=== PATIENT | female | born 1975 | race Caucasian/White ===

== ENCOUNTER 2023-11-26 14:00 | Outpatient (AMB) | payer OTHER, SELFPAY ==
--- NOTE | 2023-11-26 14:07 | MHC.OFFVIS ---
Intake Vital Signs 11/26/23 14:12 Height 5 ft 5 in Weight 178 lb BMI 29.6 BP 138/86 Intake Visit Reasons: New patient pelvic cramping Intake Note: c/o of pelvic pressure. ? fibroids Cylinder Machine Operator Required: No Information Interpreted: non-clinical & clinical Heading And Priming Tool Setter: Heading And Priming Tool Setter Present (Ayana FOY) Accompanied by: Self / Same As Patient Allergies sulfamethoxazole [From Bactrim] Allergy (Severe, Verified 11/26/23 14:14) Rash trimethoprim [From Bactrim] Allergy (Severe, Verified 11/26/23 14:14) Rash Is last menstrual period known: Yes Last menstrual period: 11/19/23 HPI HPI Comments History of Present Illness Details Presenting referred from PCP regarding heavy irregular menstrual cycles associated with pelvic cramping and passage of blood clots. The patient had a CT scan and pelvic ultrasound results not available which showed according the patient myomas. No previous screening mammogram PFSH Surgical History Hx of cholecystectomy Family History Father Heart disease Social History Household Members: Spouse Household Members Other:: stepson Housing: House Alcohol intake: never Patient Tobacco Use Status: Current everyday Tobacco user Cigarettes Per Day: 20 Years Smoked: 20 Current occupational status: employed Current occupation: Therapist Sexually active: Yes Sexual orientation: Straight/Heterosexual Gender identity: Female Female Reproductive History Menstrual Date of last menstrual period: 11/19/23 Review of Systems Const All systems reviewed & are unremarkable except as noted in HPI and below Card Reports as per HPI Resp Reports as per HPI GI Reports as per HPI and Reports no additional complaints Reports as per HPI Physical Exam Vital Signs: Last Vital Signs BP 138/86 11/26/23 14:12 BMI result Body Mass Index 29.6 Const General: cooperative, healthy appearing and comfortable Chest Chest palpation & inspection: normal inspection of the chest and normal palpation of entire chest wall Breast/axilla inspection: normal inspection of the breasts and normal inspection of the axillae Breast/axilla palpation: normal palpation of the breasts, normal palpation of the axillae and no axillary lymphadenopathy Resp Effort & Inspection: normal respiratory effort Auscultation: clear to auscultation bilaterally Percussion: percussion normal Cardio Palpation: normal PMI Rate: regular rate Rhythm: regular rhythm Heart sounds: no murmurs and no rubs Peripheral pulses: Peripheral pulses 2+ throughout GI Inspection: Yes normal to inspection Palpation (GI): Soft to palpation, nontender, no guarding, not rigid and No hepatosplenomegaly present Percussion: Yes normal to percussion Auscultation: normal bowel sounds Rectal Exam - Female: deferred General: Yes bladder normal to palpation External Female Exam: No lesion Speculum Exam - Vagina: normal appearance of the vagina, normal palpation, normal vaginal discharge and not erythematous Speculum Exam - Cervix: normal appearance of the cervix and normal palpation Bimanual exam- vagina & uterus: normal bimanual exam, normal palpation, uterine size normal, bladder normal to palpation, consistency normal and normal palpation Bimanual Exam- Adnexa, other: normal adnexae, no masses and no tenderness Results AMB Urinalysis Dipstick UR Leukocytes Negative Last Edit by Ayana Ogden CMA on 11/26/23 14:25 UR Nitrite Negative Last Edit by Ayana Ogden, GASOLINE LOCOMOTIVE CRANE OPERATOR on 11/26/23 14:25 UR Urobilinogen Normal Last Edit by Ayana Ogden, GASOLINE LOCOMOTIVE CRANE OPERATOR on 11/26/23 14:25 UR Protein Negative Last Edit by Ayana Ogden, GASOLINE LOCOMOTIVE CRANE OPERATOR on 11/26/23 14:25 UR Ph 5.5 Last Edit by Ayana Ogden, GASOLINE LOCOMOTIVE CRANE OPERATOR on 11/26/23 14:25 UR Blood Negative Last Edit by Ayana Ogden, GASOLINE LOCOMOTIVE CRANE OPERATOR on 11/26/23 14:25 UR Specific [place] 1.020 Last Edit by Ayana Ogden, GASOLINE LOCOMOTIVE CRANE OPERATOR on 11/26/23 14:25 UR Ketone Negative Last Edit by Ayana Ogden, GASOLINE LOCOMOTIVE CRANE OPERATOR on 11/26/23 14:25 UR Bilirubin Negative Last Edit by Ayana Ogden, GASOLINE LOCOMOTIVE CRANE OPERATOR on 11/26/23 14:25 UR Glucose Negative Last Edit by Ayana Odgen, GASOLINE LOCOMOTIVE CRANE OPERATOR on 11/26/23 14:25 Assessment & Plan Assessment & Plan (1) Abnormal uterine bleeding (AUB): Code(s): N93.9 - Abnormal uterine and vaginal bleeding, unspecified Plan: Co testing done, screening mammogram, GC and chlamydia taken CBC, prolactin, FSH/LH, TSH, HCG ordered and we request the results of the CT scan and pelvic ultrasound. Discussed with the patient the different causes of abnormal bleeding including thyroid disorders, uterine and ovarian pathology, endometrial hyperplasia, carcinoma and other potential causes. Discussed with the patient the work up including CBC (to r/o anemia), TSH, prolactin, FSH/LH, hCG pelvic Ultrasound, endometrial biopsy to r/o endometrial pathology. All questions answered and the patient verbalized understanding. Instructed the patient to schedule an appointment for an endometrial biopsy in 2 weeks. Orders: Orders AMB Urinalysis Dipstick Today R10.2 - Pelvic and perineal pain Prolactin Today N93.9 - Abnormal uterine and vaginal bleeding, unspecified TSH reflex Free T4 Today N93.9 - Abnormal uterine and vaginal bleeding, unspecified HCG Quantitative Today N93.9 - Abnormal uterine and vaginal bleeding, unspecified Follicle Stimulating Hormone Today N93.9 - Abnormal uterine and vaginal bleeding, unspecified Lutenizing Hormone Today N93.9 - Abnormal uterine and vaginal bleeding, unspecified MM screening mammo BI Today Z12.31 - Encounter for screening mammogram for malignant neoplasm of breast Complete Blood Count no Diff Today N93.9 - Abnormal uterine and vaginal bleeding, unspecified Coding Level of Care Code New Pt Level 3 (80224) Diagnoses Abnormal uterine bleeding (AUB) N93.9
[2023-11-26 14:12] VITALS: BP 138/86; BMI 29.6
== END 2023-11-26 14:43 | disposition home or self-care (01) ==
PROVIDERS: PCP Internal Medicine; Visit Provider Obstetrics & Gynecology
DX: R10.2 Pelvic and perineal pain (principal); N93.9 Abnormal uterine and vaginal bleeding, unspecified
CPT/HCPCS: 99203

== ENCOUNTER 2023-11-26 14:00 | Outpatient (REF) | payer OTHER, SELFPAY ==
[2023-11-26 15:34] LABS: Hematocrit 41.5 % (37.0-47.0); Hemoglobin 13.9 g/dl (12.0-16.0); Mean Corpuscular HGB Conc 33.5 g/dl (31.0-35.0); Mean Corpuscular Hemoglobin 28.5 pg (27.0-33.0); Mean Corpuscular Volume 85.2 fL (80.0-98.0); Mean Platelet Volume 9.5 fL (9.4-12.3); Platelet Count 407 X10*3/uL (160-400); Red Blood Count 4.87 X10*6/uL (4.20-5.50); Red Cell Distribution Width 14.2 % (11.0-16.0); White Blood Count 10.3 X10*3/uL (4.8-10.8)
[2023-11-26 16:41] LABS: HCG Quantitative < 2 mIU/mL; TSH reflex Free T4 1.48 uIU/mL (0.32-4.0)
[2023-11-27 02:14] LABS: CT PCR NOT DETECTED (Not Detect.); NG PCR NOT DETECTED (Not Detect.)
[2023-11-28 01:48] LABS: Follicle Stimulating Hormone 20.7 mIU/mL; Lutenizing Hormone 3.6 mIU/mL; Prolactin 6.4 ng/mL
[2023-11-29 09:29] LABS: HPV mRNA E6/E7 rflx Not Detected (Not Detected)
== END 2023-11-26 14:01 | disposition home or self-care (01) ==
LOC: HO.LAB 14:00
PROVIDERS: PCP Internal Medicine; Visit Provider Obstetrics & Gynecology
DX: Z12.4 Encounter for screening for malignant neoplasm of cervix (principal); Z11.51 Encounter for screening for human papillomavirus (HPV); N93.9 Abnormal uterine and vaginal bleeding, unspecified; Z20.2 Contact with and (suspected) exposure to infections with a predominantly sexual mode of transmission
CPT/HCPCS: 0353U; 36415; 81002; 83001; 83002; 84146; 84443; 84702; 85027; 87624; 88142

== ENCOUNTER 2023-12-22 07:59 | Outpatient (REF) | payer OTHER, SELFPAY | END 2023-12-22 08:00 | disposition home or self-care (01) | LOC: HO.LNP 07:59 | PROVIDERS: PCP Internal Medicine; Visit Provider Obstetrics & Gynecology | DX: N93.9 Abnormal uterine and vaginal bleeding, unspecified (principal) | CPT/HCPCS: 58100; 81025; 88305 ==

== ENCOUNTER 2023-12-22 07:59 | Outpatient (AMB) | payer OTHER, SELFPAY ==
--- NOTE | 2023-12-22 08:02 | MHC.OFFVIS ---
Intake Vital Signs 12/22/23 08:06 Height 5 ft 5 in Weight 176 lb 5.917 oz BMI 29.3 BP 148/82 H Intake Visit Reasons: U/S-CT follow up/from [facility] Allergies sulfamethoxazole [From Bactrim] Allergy (Severe, Verified 11/26/23 14:14) Rash trimethoprim [From Bactrim] Allergy (Severe, Verified 11/26/23 14:14) Rash HPI HPI Comments History of Present Illness Details Presenting for EMB PFSH Surgical History Hx of cholecystectomy Family History Father Heart disease Social History Household Members: Spouse Household Members Other:: stepson Housing: House Alcohol intake: never Patient Tobacco Use Status: Current everyday Tobacco user Cigarettes Per Day: 20 Years Smoked: 20 Current occupational status: employed Current occupation: Therapist Sexual orientation: Straight/Heterosexual Gender identity: Female Review of Systems Const All systems reviewed & are unremarkable except as noted in HPI and below Reports as per HPI and Reports no additional complaints GI Reports no additional complaints Reports no additional complaints Physical Exam Vital Signs: Last Vital Signs BP 148/82 H 12/22/23 08:06 BMI result Body Mass Index 29.3 Office Procedures Endometrial Biopsy Details: The patient was counseled regarding the indication and benefits of endometrial sampling to rule out endometrial pathology including not limited to endometrial hyperplasia or endometrial cancer and others; The alternatives (Either do nothing vs. hysteroscopy D&C) & the risks were discussed with the patient including but not limited: pain, uterine perforation, bleeding, infection, possible injury to bladder, bowel, ureter, possible need for blood transfusion with all its possible risks. The patient verbalized understanding all questions answered and signed consent. UPT was done and was negative The patient was placed into the dorsal lithotomy position; a speculum was inserted in the vagina. Using aseptic technique for the procedure, the cervix was cleansed with Betadine. The anterior lip of the cervix was grasped with a single tooth tenaculum. The uterus was sounded to 7 cm with a 4 mm Pipelle was used. Tissues samples were obtained and placed in formalin, in a patient labeled container and sent to the pathology department. At the end of the procedure, there was minimal bleeding noted The patient tolerated the procedure well and was discharged in good condition with the following instructions: Nothing in the vagina until the bleeding stops. No sex until the bleeding stops, to call if any of the following occurs: fever (>100.4), flu-like symptoms, abdominal pain, heavy bleeding, four smelling vaginal discharge. The patient was instructed to schedule a Follow up appointment in 2 weeks to discuss pathology results of the biopsy and treatment options. This note was generated with a voice recognition program. Some errors may have been overlooked during the review of this note. Sometimes these errors may affect the content or meaning of a given sentence. 95089-[id number] Biopsy Results AMB Test Urine AMB Test Urine Negative Last Edit by LAW Porter on 12/22/23 08:21 Results Reviewed Results Reviewed: Laboratory Last Values Tst Clinic Negative 12/22/23 08:20 Assessment & Plan Assessment & Plan (1) Abnormal uterine bleeding (AUB): Comment: Multiple large myomas Code(s): N93.9 - Abnormal uterine and vaginal bleeding, unspecified Plan: EMB done, see procedure note Orders: Orders Surgical Today N93.9 - Abnormal uterine and vaginal bleeding, unspecified AMB Endometrial Biopsy Today N93.9 - Abnormal uterine and vaginal bleeding, unspecified AMB HCG Urine Test Today N93.9 - Abnormal uterine and vaginal bleeding, unspecified Coding Level of Care Code Procedure Only Diagnoses Abnormal uterine bleeding (AUB) N93.9 CPT Codes Endometrial Biopsy - CPT: 76648-Eksjitzdgxf Biopsy ([id number])
[2023-12-22 08:06] VITALS: BP 148/82; BMI 29.3
== END 2023-12-22 08:41 | disposition home or self-care (01) ==
PROVIDERS: PCP Internal Medicine; Visit Provider Obstetrics & Gynecology
DX: N93.9 Abnormal uterine and vaginal bleeding, unspecified (principal)
CPT/HCPCS: 58100

== ENCOUNTER 2023-12-24 12:55 | Outpatient (AMB) | payer OTHER, SELFPAY ==
[2023-12-24 12:59] VITALS: BP 142/80; BMI 29.3
--- NOTE | 2023-12-24 12:59 | MHC.OFFVIS ---
Intake Vital Signs 12/24/23 12:59 Height 5 ft 5 in Weight 176 lb 5.917 oz BMI 29.3 BP 142/80 H Intake Visit Reasons: EMB Follow up Facing Machine Operator: Facing Machine Operator Present Allergies sulfamethoxazole [From Bactrim] Allergy (Severe, Verified 11/26/23 14:14) Rash trimethoprim [From Bactrim] Allergy (Severe, Verified 11/26/23 14:14) Rash Is last menstrual period known: Yes Last menstrual period: 09/14/20 Post menopausal: No Patient : No Do you need a note to return to daycare/school/sports/work: Yes (for surgery on friday) HPI HPI Comments History of Present Illness Details The patient is presenting for follow-up to discuss the results of her abnormal uterine bleeding workup and options of treatment. The following workup was done.: H&H= 13.9/41.5 TSH, prolactin, hCG, GC and chlamydia were negative. Endometrial biopsy pathology showed the following: Endometrium, biopsy: Predominantly mucus and blood with endocervical glandular mucosa, scant inactive endometrium with fragment of benign endometrial polyp, and benign endocervical polyp; no atypia or carcinoma Co testing was done was negative. Pelvic ultrasound showed the following: Fundal myoma measuring 5.5 cm, mid body submucosal myoma 3.9 cm lower uterine segment myoma measuring 5.6 cm PFSH Medical History HTN (hypertension) Surgical History Hx of cholecystectomy Family History Father Heart disease Social History Household Members: Spouse Household Members Other:: stepson Housing: House Alcohol intake: never Patient Tobacco Use Status: Current everyday Tobacco user Cigarettes Per Day: 20 Years Smoked: 20 Current occupational status: employed Current occupation: Therapist Sexual orientation: Straight/Heterosexual Gender identity: Female Female Reproductive History Menstrual Date of last menstrual period: 09/14/20 Total pregnancies: 2 Full term: 2 Review of Systems Const All systems reviewed & are unremarkable except as noted in HPI and below Reports as per HPI and Reports no additional complaints Card Reports as per HPI and Reports no additional complaints Resp Reports as per HPI and Reports no additional complaints GI Reports as per HPI and Reports no additional complaints Reports as per HPI Physical Exam Vital Signs: Last Vital Signs BP 142/80 H 12/24/23 12:59 BMI result Body Mass Index 29.3 Const General: cooperative, healthy appearing and comfortable Resp Effort & Inspection: normal respiratory effort Auscultation: clear to auscultation bilaterally Percussion: percussion normal Cardio Palpation: normal PMI Rate: regular rate Rhythm: regular rhythm Heart sounds: no murmurs and no rubs Peripheral pulses: Peripheral pulses 2+ throughout GI Inspection: Yes normal to inspection Palpation (GI): Soft to palpation, nontender, no guarding, not rigid and No hepatosplenomegaly present Percussion: Yes normal to percussion Auscultation: normal bowel sounds Rectal Exam - Female: deferred Assessment & Plan Assessment & Plan (1) Abnormal uterine bleeding (AUB): Comment: Multiple large myomas Fragments of endometrial polyp on EMB pathology Code(s): N93.9 - Abnormal uterine and vaginal bleeding, unspecified Plan: Discussed with the patient the results of the workup and options of treatment. All pros and cons, risks and benefits of all options were discussed with the patient. The patient decided to proceed with surgical management. Discussed with the patient the different types of hysterectomies including minimally invasive option. All pros, cons, r/b of each approach were discussed the patient including evidence that morbidity is less and recovery is shorter with minimally invasive approaches to hysterectomy. Discussed with the patient the lack of availability of the robot DaVinci robot and/or minimally invasive core composer feeder specialist at [facility]. Will refer to [facility] for minimally invasive hysterectomy. All questions answered the patient verbalized understanding Coding Level of Care Code Est Pt Level 3 (68456) Diagnoses Abnormal uterine bleeding (AUB) N93.9
== END 2023-12-24 15:12 | disposition home or self-care (01) ==
LOC: HO.HWS 12:55
PROVIDERS: PCP Internal Medicine; Visit Provider Obstetrics & Gynecology
DX: N93.9 Abnormal uterine and vaginal bleeding, unspecified (principal)
CPT/HCPCS: 99213

== ENCOUNTER → 2023-12-24 12:55 | Outpatient (BNVA) | payer OTHER, SELFPAY | PROVIDERS: PCP Internal Medicine; Visit Provider Obstetrics & Gynecology ==

== ENCOUNTER 2024-02-23 09:46 | Day surgery (SDC) | payer OTHER, SELFPAY ==
[2024-02-18 08:11] VITALS: BMI 31.6
--- NOTE | 2024-02-19 13:56 | HO.ANESPROP2 ---
Documented by User: Bruna Aldana NP 02/19/24 13:57 HPI - Anesthesia Eval Consult details Narrative: 49yo F for Right Cataract Extraction IOL Insertion Optimized per PCP No previous cataract on record PMFSH Active Problems Active Problems: All Active Problems Abnormal uterine bleeding (AUB) (Acute) Past Medical History Medical History Narcolepsy Pre-diabetes Chronic pain disorder Depression with anxiety Back pain GERD (gastroesophageal reflux disease) HTN (hypertension) Family History Family History Father Heart disease Surgical History Surgical History Hx of cholecystectomy Social History Social History Household Members: Spouse Household Members Other:: stepson Housing: House Alcohol intake: never Patient Tobacco Use Status: Current everyday Tobacco user Cigarettes Per Day: 20 Years Smoked: 20 Advance Directives: No Advance Directives Information Provided: Yes Current occupational status: employed Current occupation: Therapist Sexual orientation: Straight/Heterosexual Gender identity: Female Meds Allergies Allergy/AdvReac Type Severity Reaction Status Date / Time sulfamethoxazole Allergy Severe Rash Verified 11/26/23 14:14 [From Bactrim] trimethoprim [From Bactrim] Allergy Severe Rash Verified 11/26/23 14:14 prednisone Allergy Intermediate Rash Verified 02/18/24 08:11 Home Medications ?Medication ?Instructions ?Recorded ?Confirmed ?Last Taken ?Type amlodipine 10 mg tablet 10 mg PO DAILY 11/26/23 02/18/24 Unknown History carisoprodol 350 mg tablet 350 mg PO TID PRN Muscle Spasm 11/26/23 02/18/24 Unknown History escitalopram oxalate 10 mg tablet 10 mg PO DAILY 11/26/23 02/18/24 Unknown History fluticasone propionate 50 1 spray intranasal BID 02/18/24 02/18/24 Unknown History mcg/actuation nasal spray,suspension hydrocodone 5 mg-acetaminophen 325 1 tab PO Q8H PRN moderate pain 02/18/24 02/18/24 Unknown History mg tablet lisdexamfetamine 30 mg capsule 30 mg PO QAM 02/18/24 02/18/24 Unknown History (Vyvanse) meloxicam 15 mg tablet 15 mg PO QAM 02/18/24 02/18/24 Unknown History Exam Height,Weight and Vital Signs: Height 5 ft 5 in Weight 86.2 kg Assessment and Plan Assessment Anesthesia Assessment: Chart Reviewed Documented by User: Kaykay Granados MD 02/23/24 09:51 PMFSH Past Medical History Medical History Narcolepsy Pre-diabetes Chronic pain disorder Depression with anxiety Back pain GERD (gastroesophageal reflux disease) HTN (hypertension) Family History Family History Father Heart disease Family history of problems with anesthesia: No Surgical History Surgical History Hx of cholecystectomy History of Problems with Anesthesia: No Social History Social History Household Members: Spouse Household Members Other:: stepson Housing: House Alcohol intake: never Patient Tobacco Use Status: Current everyday Tobacco user Cigarettes Per Day: 20 Years Smoked: 20 Advance Directives: No Advance Directives Information Provided: Yes Current occupational status: employed Current occupation: Therapist Sexual orientation: Straight/Heterosexual Gender identity: Female Meds Allergies Allergy/AdvReac Type Severity Reaction Status Date / Time sulfamethoxazole Allergy Severe Rash Verified 11/26/23 14:14 [From Bactrim] trimethoprim [From Bactrim] Allergy Severe Rash Verified 11/26/23 14:14 prednisone Allergy Intermediate Rash Verified 02/18/24 08:11 Home Medications ?Medication ?Instructions ?Recorded ?Confirmed ?Last Taken ?Type amlodipine 10 mg tablet 10 mg PO DAILY 11/26/23 02/18/24 Unknown History carisoprodol 350 mg tablet 350 mg PO TID PRN Muscle Spasm 11/26/23 02/18/24 Unknown History escitalopram oxalate 10 mg tablet 10 mg PO DAILY 11/26/23 02/18/24 Unknown History fluticasone propionate 50 1 spray intranasal BID 02/18/24 02/18/24 Unknown History mcg/actuation nasal spray,suspension hydrocodone 5 mg-acetaminophen 325 1 tab PO Q8H PRN moderate pain 02/18/24 02/18/24 Unknown History mg tablet lisdexamfetamine 30 mg capsule 30 mg PO QAM 02/18/24 02/18/24 Unknown History (Vyvanse) meloxicam 15 mg tablet 15 mg PO QAM 02/18/24 02/18/24 Unknown History Exam Airway Mallampati Class: II TM Dist: >3cm Neck ROM: Full Heart: rrr Lungs: cta Assessment and Plan Assessment Anesthesia Assessment: Anesthesia Plan Discussed Final Anesthetic Review Family History of Problems with Anesthesia: No History of Problems with Anesthesia: No NPO: Yes ASA Class: III Final Preanesthetic Review: No Changes in Pt Med Stat, Meds/Allgs Chart Reviewed, Consent Obtained/Reviewed and Anes Risks/Benef Reviewed Patient Risk: Intermediate Procedure Risk: Low Anesthetic Plan Anesthetic Plan: MAC: Disposition: Standard PACU
--- NOTE | 2024-02-23 09:56 | HO.ANESPROP2 ---
HPI - Anesthesia Eval Consult details Narrative: for cataract PMFSH Active Problems Active Problems: All Active Problems Abnormal uterine bleeding (AUB) (Acute) Past Medical History Medical History Narcolepsy Pre-diabetes Chronic pain disorder Depression with anxiety Back pain GERD (gastroesophageal reflux disease) HTN (hypertension) Family History Family History Father Heart disease Family history of problems with anesthesia: No Surgical History Surgical History Hx of cholecystectomy History of Problems with Anesthesia: No Social History Social History Household Members: Spouse Household Members Other:: stepson Housing: House Alcohol intake: never Patient Tobacco Use Status: Current everyday Tobacco user Cigarettes Per Day: 20 Years Smoked: 20 Advance Directives: No Advance Directives Information Provided: Yes Current occupational status: employed Current occupation: Therapist Sexual orientation: Straight/Heterosexual Gender identity: Female Meds Allergies Allergy/AdvReac Type Severity Reaction Status Date / Time sulfamethoxazole Allergy Severe Rash Verified 11/26/23 14:14 [From Bactrim] trimethoprim [From Bactrim] Allergy Severe Rash Verified 11/26/23 14:14 prednisone Allergy Intermediate Rash Verified 02/18/24 08:11 Home Medications ?Medication ?Instructions ?Recorded ?Confirmed ?Last Taken ?Type amlodipine 10 mg tablet 10 mg PO DAILY 11/26/23 02/18/24 Unknown History carisoprodol 350 mg tablet 350 mg PO TID PRN Muscle Spasm 11/26/23 02/18/24 Unknown History escitalopram oxalate 10 mg tablet 10 mg PO DAILY 11/26/23 02/18/24 Unknown History fluticasone propionate 50 1 spray intranasal BID 02/18/24 02/18/24 Unknown History mcg/actuation nasal spray,suspension hydrocodone 5 mg-acetaminophen 325 1 tab PO Q8H PRN moderate pain 02/18/24 02/18/24 Unknown History mg tablet lisdexamfetamine 30 mg capsule 30 mg PO QAM 02/18/24 02/18/24 Unknown History (Ronaldo) meloxicam 15 mg tablet 15 mg PO QAM 02/18/24 02/18/24 Unknown History Exam Height,Weight and Vital Signs: Height 5 ft 5 in Weight 86.2 kg Airway Mallampati Class: II TM Dist: >3cm Neck ROM: Full Heart: rrr Lungs: cta Assessment and Plan Assessment Anesthesia Assessment: Anesthesia Plan Discussed and Chart Reviewed Final Anesthetic Review Family History of Problems with Anesthesia: No History of Problems with Anesthesia: No NPO: Yes ASA Class: III Final Preanesthetic Review: No Changes in Pt Med Stat, Meds/Allgs Chart Reviewed, Consent Obtained/Reviewed and Anes Risks/Benef Reviewed Patient Risk: Intermediate Procedure Risk: Low Anesthetic Plan Anesthetic Plan: MAC: Disposition: Standard PACU
[2024-02-23 10:00] VITALS: BMI 31.5
[2024-02-23 10:10] LABS: UPreg QC Valid YES; Urine Pregnancy NEGATIVE (NEGATIVE)
[2024-02-23] MEDS: Lactated Ringers 500 ML 50 ML IV (10:13)
[2024-02-23] MEDS: Phenylephrine HCL 2.5% Oph SoL 2 ML BOTTLE 1 DROP EYE-RIGHT ×3 (10:13→10:25)
[2024-02-23] MEDS: Tetracaine HCl/PF 0.5% Oph Sol 4 ML DROPS 1 DROP EYE-RIGHT (10:13)
[2024-02-23] MEDS: Ketorolac Tromethamine 0.5% Op 5 ML DROPS 1 DROP EYE-RIGHT ×3 (10:13→10:25)
[2024-02-23] MEDS: Tropicamide 1 % Ophth Sol 3 ML BTL 1 DROP EYE-RIGHT ×3 (10:13→10:25)
[2024-02-23 10:29] VITALS: BP 164/76; PULSE 86; RESP 18; TEMP 36.4; O2SAT 96
--- NOTE | 2024-02-23 10:30 | PC.NURSE ---
pharmacy stated that dr. li is aware that there in no more cyclogyl available preop
--- NOTE | 2024-02-23 10:49 | MHC.SHP ---
Pre-Procedural Eval Section A - 24 Hr Update-Section A only Date of Service: 02/23/24 The patient is an INPATIENT: No Changes since office visit: No Cold of Flu in the past 2 weeks, No New Medical Problems, No Changes in Medication and No Patient answered all questions The patient has been examined within 24 hours of the surgical procedure. The History & Physical has been completed within 30 days and I have reviewed it.: Yes Section B - Complete if H&P > 30 days Chief Complaint: Age-related nuclear cataract, right eye Allergies: Allergies Allergy/AdvReac Type Severity Reaction Status Date / Time sulfamethoxazole Allergy Severe Rash Verified 02/23/24 10:29 [From Bactrim] trimethoprim [From Bactrim] Allergy Severe Rash Verified 02/23/24 10:29 prednisone Allergy Intermediate Rash Verified 02/23/24 10:29 Plan Diagnosis/Plan: Unchanged I have reviewed the history and physical and performed a pertinent physical examination on my patient. No changes have occurred unless specified. Time Spent With Patient Time: Total time managing care of this patient today ____ minutes.
--- NOTE | 2024-02-23 10:50 | P.PCNO_ITS ---
Ophthalmology Procedure Procedure Date of Service: 02/23/24 Ophthalmology Viscoelastic: Healon Duet Dual Pack Pro Ophthalmology Lenses: IOL Acrysof MP - MA60AC (23.5) Procedure Notes: PREOPERATIVE DIAGNOSIS: Decreased visual acuity right eye secondary to cataract POSTOPERATIVE DIAGNOSIS: Same PROCEDURE: Right cataract extraction with intraocular lens insertion SURGEON: Sid Waldron M.D. ANESTHESIA: Topical/MAC ESTIMATED BLOOD LOSS: None COMPLICATIONS: None After obtaining informed consent, the patient was brought to the operating room suite and placed in the supine position. After adequate sedation per anesthesia, topical drops of Tetracaine were given to the right eye. The eye was then prepped and draped in the usual sterile fashion. The operating room microscope was then positioned over the operative eye and a lid speculum placed. A paracentesis was created. Viscoelastic was then instilled into the anterior chamber. A three plane incision was then created temporally, utilizing a 2.85 mm keratome. Capsulotomy forceps were then utilized to create a circular tear capsulotomy. Hydrodissection and hydrodelineation were carried out until adequate mobilization of the nucleus occurred. Phacoemulsification was then utilized to remove the dense central nu cleus followed by removal of the cortical material utilizing the automated aspiration irrigation unit. Viscoelastic was instilled into the posterior capsular bag followed by placement of a posterior chamber intraocular lens without difficulty. The residual Viscoelastic was then removed utilizing the automated IA machine. The wound was checked and found to be watertight. The patient tolerated the procedure well and the lid speculum was removed. Intracameral injection of Vigamox 0.1 mL followed by a subtenon injection of Kenalog-40 0.2 mL were administered. The patient will be seen in the a.m.
[2024-02-23 12:25] VITALS: BP 126/54; PULSE 79; RESP 17; TEMP 36.8; O2SAT 96
== END 2024-02-23 12:41 | disposition home or self-care (01) ==
PROVIDERS: Anesthesiology; PCP Internal Medicine; Visit Provider Ophthalmology
PROC: (CPT 66985; principal; 2024-02-23 12:00)
DX: H25.11 Age-related nuclear cataract, right eye (principal); H52.4 Presbyopia; H40.013 Open angle with borderline findings, low risk, bilateral; H52.13 Myopia, bilateral; H52.203 Unspecified astigmatism, bilateral; F41.8 Other specified anxiety disorders; G89.29 Other chronic pain; I10 Essential (primary) hypertension; R73.03 Prediabetes; G47.419 Narcolepsy without cataplexy; Z79.899 Other long term (current) drug therapy; Z88.1 Allergy status to other antibiotic agents; Z88.8 Allergy status to other drugs, medicaments and biological substances; F17.210 Nicotine dependence, cigarettes, uncomplicated
CPT/HCPCS: 66984; 81025; J2250; J3010; J3301; V2630

== ENCOUNTER 2024-03-08 07:41 | Day surgery (SDC) | payer OTHER, SELFPAY ==
[2024-02-18 08:14] VITALS: BMI 31.6
[2024-03-08 08:28] VITALS: BP 145/86; PULSE 81; RESP 15; TEMP 36.3; O2SAT 95
[2024-03-08] MEDS: Tetracaine HCl/PF 0.5% Oph Sol 4 ML DROPS 1 DROP EYE-LEFT (08:33)
[2024-03-08] MEDS: Tropicamide 1 % Ophth Sol 3 ML BTL 1 DROP EYE-LEFT ×3 (08:35→08:43)
--- NOTE | 2024-03-08 08:36 | MHC.SHP ---
Pre-Procedural Eval Section A - 24 Hr Update-Section A only Date of Service: 03/08/24 The patient is an INPATIENT: No Changes since office visit: No Cold of Flu in the past 2 weeks, No New Medical Problems, No Changes in Medication and No Patient answered all questions The patient has been examined within 24 hours of the surgical procedure. The History & Physical has been completed within 30 days and I have reviewed it.: Yes Section B - Complete if H&P > 30 days Chief Complaint: Age-related nuclear cataract, left eye Allergies: Allergies Allergy/AdvReac Type Severity Reaction Status Date / Time sulfamethoxazole Allergy Severe Rash Verified 03/08/24 07:58 [From Bactrim] trimethoprim [From Bactrim] Allergy Severe Rash Verified 03/08/24 07:58 Plan Diagnosis/Plan: Unchanged I have reviewed the history and physical and performed a pertinent physical examination on my patient. No changes have occurred unless specified. Time Spent With Patient Time: Total time managing care of this patient today ____ minutes.
[2024-03-08] MEDS: Ketorolac Tromethamine 0.5% Op 5 ML DROPS 1 DROP EYE-LEFT ×3 (08:37→08:44)
--- NOTE | 2024-03-08 08:37 | HO.PNOPHT ---
Ophthalmology Procedure Procedure Date of Service: 03/08/24 Ophthalmology Viscoelastic: Healon Duet Dual Pack Pro Ophthalmology Lenses: IOL Acrysof MP - MA60AC (24.5) Procedure Notes: PREOPERATIVE DIAGNOSIS: Decreased visual acuity left eye secondary to cataract POSTOPERATIVE DIAGNOSIS: Same PROCEDURE: Left cataract extraction with intraocular lens insertion SURGEON: Sid Waldron M.D. ANESTHESIA: Topical/MAC ESTIMATED BLOOD LOSS: None COMPLICATIONS: None After obtaining informed consent, the patient was brought to the operation room suite and placed in the supine position. After adequate sedation per anesthesia, topical drops of Tetracaine were given to the left eye. The eye was then prepped and draped in the usual sterile fashion. The operating room microscope was then positioned over the operative eye and a lid speculum placed. A paracentesis was created. Viscoelastic was then instilled into the anterior chamber. A three plane incision was then created temporally, utilizing a 2.85 mm keratome. Capsulotomy forceps were then utilized to create a circular tear capsulotomy. Hydrodissection and hydrodelineation were carried out until adequate mobilization of the nucleus occurred. Phacoemulsification was then utilized to remove the dense central nucleus followed by removal of the cortical material utilizing the automated aspiration irrigation unit. Viscoat elastic was instilled into the posterior capsular bag followed by placement of a posterior chamber intraocular lens without difficulty. The residual Viscoat elastic was then removed utilizing the automated IA machine. The wound was check and found to be watertight. The patient tolerated the procedure well and the lid speculum was removed. Intracameral injection of Vigamox 0.1 mL followed by a subtenon injection of Kenalog-40 0.2 mL were administered. The patient will be seen in the a.m.
[2024-03-08] MEDS: Phenylephrine HCL 2.5% Oph SoL 2 ML BOTTLE 1 DROP EYE-LEFT ×3 (08:38→08:45)
--- NOTE | 2024-03-08 08:52 | HO.ANESPROP2 ---
HPI - Anesthesia Eval Consult details Narrative: 49 yo F presenting for Left Cataract Extraction IOL Insertion PMFSH Active Problems Active Problems: All Active Problems (Updated 02/18/24 @ 08:08 by Maggie Cohen RN) Abnormal uterine bleeding (AUB) (Acute) Past Medical History Medical History Narcolepsy Pre-diabetes Chronic pain disorder Depression with anxiety Back pain GERD (gastroesophageal reflux disease) HTN (hypertension) Family History Family History Father Heart disease Family history of problems with anesthesia: No Surgical History Surgical History (Updated 03/08/24 @ 07:58 by Ting Tapia RN) Hx of right cataract extraction Hx of cholecystectomy History of Problems with Anesthesia: No Social History Social History Household Members: Spouse Household Members Other:: stepson Housing: House Alcohol intake: never Patient Tobacco Use Status: Current everyday Tobacco user Tobacco use type: Cigarette Cigarettes Per Day: 20 Years Smoked: 20 Use of substances other than those prescribed or required for medical reasons: No Are you DNR?: No Advance Directives: No Advance Directives Information Provided: Yes Current occupational status: employed Current occupation: Therapist Sexual orientation: Straight/Heterosexual Gender identity: Female Meds Allergies Allergy/AdvReac Type Severity Reaction Status Date / Time sulfamethoxazole Allergy Severe Rash Verified 03/08/24 07:58 [From Bactrim] trimethoprim [From Bactrim] Allergy Severe Rash Verified 03/08/24 07:58 Active Medications: Current Medications Povidone Iodine (Povidone Iodine 5 % Ophth Soln 30 Ml Bottle) 1 appl EYE-LEFT PREOP PRN PRN Reason: Pre-Op Surgical Implant Prophy Home Medications ?Medication ?Instructions ?Recorded ?Confirmed ?Last Taken ?Type amlodipine 10 mg tablet 10 mg PO DAILY 11/26/23 03/08/24 03/08/24 06:00 History carisoprodol 350 mg tablet 350 mg PO TID PRN Muscle Spasm 11/26/23 03/08/24 Unknown History escitalopram oxalate 10 mg tablet 10 mg PO DAILY 11/26/23 03/08/24 Unknown History fluticasone propionate 50 1 spray intranasal BID 02/18/24 03/08/24 Unknown History mcg/actuation nasal spray,suspension hydrocodone 5 mg-acetaminophen 325 1 tab PO Q8H PRN moderate pain 02/18/24 03/08/24 Unknown History mg tablet lisdexamfetamine 30 mg capsule 30 mg PO QAM 02/18/24 03/08/24 Unknown History (Vyvanse) meloxicam 15 mg tablet 15 mg PO QAM 02/18/24 03/08/24 Unknown History Exam Exam Date and Time: March 08, 2024 0850 Height,Weight and Vital Signs: Height 5 ft 5 in Weight 86.183 kg Last Vital Signs Temp 97.4 F 03/08/24 08:28 Pulse 81 03/08/24 08:28 Resp 15 03/08/24 08:28 BP 145/86 H 03/08/24 08:28 Pulse Ox 95 03/08/24 08:28 O2 Del Method Room Air 03/08/24 08:28 Airway Mallampati Class: II TM Dist: >3cm Neck ROM: Full Loose/Missing/Broken Teeth: No (patient denies any loose or broken teeth) Heart: S1S2 Lungs: CTAB Assessment and Plan Assessment Anesthesia Assessment: Anesthesia Plan Discussed and Chart Reviewed Final Anesthetic Review Family History of Problems with Anesthesia: No History of Problems with Anesthesia: No NPO: Yes ASA Class: II Final Preanesthetic Review: No Changes in Pt Med Stat, Meds/Allgs Chart Reviewed, Consent Obtained/Reviewed and Anes Risks/Benef Reviewed Patient Risk: Low Procedure Risk: Low Anesthetic Plan Anesthetic Plan: MAC: and Agree w/ Assess. and Plan Disposition: Standard PACU
[2024-03-08 09:40] VITALS: BP 127/85; PULSE 74; RESP 16; TEMP 36.1; O2SAT 96
== END 2024-03-08 09:52 | disposition home or self-care (01) ==
PROVIDERS: PCP Internal Medicine; Visit Provider Ophthalmology
PROC: (CPT 66985; principal; 2024-03-08 08:40)
DX: H25.12 Age-related nuclear cataract, left eye (principal); H52.4 Presbyopia; H40.013 Open angle with borderline findings, low risk, bilateral; H52.13 Myopia, bilateral; H52.203 Unspecified astigmatism, bilateral; R73.03 Prediabetes; I10 Essential (primary) hypertension; G89.29 Other chronic pain; G47.419 Narcolepsy without cataplexy; F51.8 Other sleep disorders not due to a substance or known physiological condition; Z79.899 Other long term (current) drug therapy; Z79.891 Long term (current) use of opiate analgesic; Z88.1 Allergy status to other antibiotic agents; F17.210 Nicotine dependence, cigarettes, uncomplicated
CPT/HCPCS: 66984; J2250; J3010; J3301; V2630